=== PATIENT | male | born 1955 | race Caucasian/White ===

== ENCOUNTER 2016-09-27 22:59 | Inpatient (IN) | payer MEDICAID ==
[~2016-09-27] VITALS: Ht 180.3 cm; Wt 120.7 kg
[~2016-09-27 22:59] MED LIST: ASPI-231 PO; GLIM2TAB33 PO; HYDR25TA4 PO; INSUINJ IJ; LIS10T PO; NIAC250T17 PO; SIME125C14 PO; SIMV-8 PO
[2016-09-27 23:32] LABS: Basophils # (auto) 0 uL; Basophils % (auto) 0.5 % (0.0-2.0); Eosinophils # (auto) 0.3 uL; Eosinophils % (auto) 4.1 % (0.0-7.0); Hematocrit 35.6 % (41.0-53.0); Hemoglobin 12.3 g/dL (13.5-17.5); Lymphocytes # (auto) 1.9 uL; Mean Corpuscular Hemoglobin 29.8 pg (28.0-32.0); Mean Corpuscular Hgb Conc. 34.6 g/dL (32.0-36.0); Mean Corpuscular Volume 86.1 fL (80.0-100.0); Mean Platelet Volume 7.4 fL (7.4-10.4); Monocytes # (auto) 0.5 uL; Monocytes % (auto) 7.2 % (0.0-12.0); Neutrophils # (auto) 4.1 uL; Neutrophils % (auto) 60.2 % (37.0-80.0); Platelet Count (auto) 224 10^3/uL (140-450); Red Cell Distribution Width 13.9 % (11.6-16.0); White Blood Cell 6.7 10^3/uL (4.4-10.8)
[2016-09-27 23:48] LABS: Albumin 3.1 g/dL (3.4-5.0); BUN/Creatinine Ratio 23.3; Calcium 8.1 mg/dL (8.5-10.1); Magnesium 2.2 mg/dL (1.6-2.6)
[2016-09-28 00:01] LABS: Bilirubin, Total 0.2 mg/dL (0.2-1.0); Total Protein 6.7 g/dL (6.4-8.2)
[2016-09-28 00:03] LABS: B-Type Natriuretic Peptide 52.1 pg/mL (0-100); Temperature: 21.4 C (20.0-25.0)
[2016-09-28] MEDS ORDERED: NITROGLYCERIN 0.2MG/HR TOPICAL PATCH TD ONE (00:45)
[2016-09-28 01:13] LABS: INR 1.03 (0.9-1.15); Partial Thromboplastin Time 27.5 sec (22.64-33.71); Prothrombin Time 10.6 sec (9.37-12.3)
[2016-09-28 01:27] LABS: Urine Bilirubin Negative (Negative); Urine Color Yellow (Yellow); Urine Ketone Negative (Negative); Urine Nitrite Negative (Negative); Urine RBC 3 /hpf (0 - 3); Urine Squamous Epithelial Cell FEW /hpf (<5); Urine Urobilinogen Normal (Negative)
[2016-09-28 01:31] LABS: Urine Blood 1+ /uL (Negative); Urine Glucose 3+ mg/dL (Normal)
[2016-09-28] MEDS ORDERED: ONDANSETRON HCL 4 MG/2 ML VIAL IV PRN (05:45)
[2016-09-28] MEDS ORDERED: NITROGLYCERIN 0.4 MG SL TAB SL PRN (05:45)
[2016-09-28] MEDS ORDERED: DEXTROSE (50%) 50ML SYRG IV PRN (05:45)
[2016-09-28] MEDS ORDERED: HYDROcodone-ACET 5/325MG TAB PO PRN (05:45)
[2016-09-28] MEDS ORDERED: ACETAMINOPHEN 325 MG TAB PO PRN (05:45)
[2016-09-28] MEDS ORDERED: MORPHINE SULF INJ 2 MG/ML SYRINGE 1ML IV PRN (05:45)
[2016-09-28] MEDS: ACCU-CHEK COMFORT CURVE STRIP VI SCH ×3 (06:28→18:00)
[2016-09-28] MEDS: InsuLIN REG 1unit/0.01ml Soln (100units/ml) SC SCH ×3 (06:28→18:00)
[2016-09-28] MEDS ORDERED: GLIMEPIRIDE 2 MG TAB PO SCH (07:00)
[2016-09-28] MEDS ORDERED: ADENOSINE 103 MG in GIVE UN-DILUTED 0 ML IV STA (09:45)
[2016-09-28] MEDS ORDERED: HCTZ 25 MG TAB PO SCH (10:00)
[2016-09-28] MEDS ORDERED: LISINOPRIL 10 MG TAB PO SCH (10:00)
[2016-09-28] MEDS ORDERED: LORazepam 2MG/ML-1ML VIAL ONE (11:33)
[2016-09-28] MEDS ORDERED: LORazepam 2MG/ML-1ML VIAL IV ONE (11:45)
[2016-09-28 14:00] VITALS: BP 153/77
[2016-09-28] MEDS: FAMOTIDINE 20 MG TAB PO SCH ×2 (14:41→22:57)
[2016-09-28] MEDS: ENOXAPARIN SOD 40 MG/0.4 ML SYRINGE SC SCH (14:46)
[2016-09-28] MEDS: amLODIPine BESYLATE 5 MG TAB PO SCH ×2 (14:46→22:57)
[2016-09-28] MEDS: ASPirin 81 mg TAB PO SCH (14:46)
[2016-09-28 16:49] VITALS: BP 145/83
[2016-09-28] MEDS: GLIMEPIRIDE 2 MG TAB PO SCH (18:43)
[2016-09-28] MEDS ORDERED: CHOL20007 OR (19:24)
[2016-09-28] MEDS ORDERED: DOCU100T15 PO (19:24)
[2016-09-28] MEDS ORDERED: PERCOT PO (19:57)
[2016-09-28] MEDS ORDERED: CANA100T OR (19:57)
[2016-09-28 20:00] VITALS: BP 153/81
[2016-09-28 22:00] VITALS: BP 153/81
[2016-09-28] MEDS ORDERED: PATIENTS OWN MEDICATION (simvastatin 20 MG) PO SCH ×2 (22:00)
[2016-09-28] MEDS: ATORVASTATIN 20 MG TAB PO SCH (22:57)
[2016-09-29] VITALS (7 sets, daily range): BP systolic 132–159; BP diastolic 74–79
[2016-09-29] MEDS: InsuLIN REG 1unit/0.01ml Soln (100units/ml) SC SCH ×4 (06:00→18:00)
[2016-09-29] MEDS: ACCU-CHEK COMFORT CURVE STRIP VI SCH ×4 (06:00→18:00)
[2016-09-29 06:03] LABS: Basophils # (auto) 0 uL; Basophils % (auto) 0.5 % (0.0-2.0); Eosinophils # (auto) 0.3 uL; Hematocrit 37.5 % (41.0-53.0); Hemoglobin 12.8 g/dL (13.5-17.5); Lymphocytes # (auto) 1.6 uL; Lymphocytes % (auto) 22.7 % (10.0-50.0); Mean Corpuscular Hemoglobin 29.8 pg (28.0-32.0); Mean Corpuscular Hgb Conc. 34.2 g/dL (32.0-36.0); Mean Corpuscular Volume 87.2 fL (80.0-100.0); Mean Platelet Volume 7.5 fL (7.4-10.4); Monocytes # (auto) 0.5 uL; Monocytes % (auto) 7.2 % (0.0-12.0); Neutrophils # (auto) 4.6 uL; Neutrophils % (auto) 65.6 % (37.0-80.0); Platelet Count (auto) 231 10^3/uL (140-450); Red Cell Distribution Width 13.7 % (11.6-16.0)
[2016-09-29 06:40] LABS: BUN/Creatinine Ratio 29.7; Bilirubin, Total 0.4 mg/dL (0.2-1.0); Calcium 8.8 mg/dL (8.5-10.1); Potassium 4.5 mmol/L (3.5-5.1); Total Protein 6.7 g/dL (6.4-8.2)
[2016-09-29] MEDS: GLIMEPIRIDE 2 MG TAB PO SCH ×2 (08:19→18:00)
[2016-09-29] MEDS: ASPirin 81 mg TAB PO SCH (10:37)
[2016-09-29] MEDS: FAMOTIDINE 20 MG TAB PO SCH ×2 (10:38→22:20)
[2016-09-29] MEDS: amLODIPine BESYLATE 5 MG TAB PO SCH ×2 (10:38→22:20)
[2016-09-29] MEDS: ENOXAPARIN SOD 40 MG/0.4 ML SYRINGE SC SCH (10:39)
[2016-09-29] MEDS: ATORVASTATIN 20 MG TAB PO SCH (22:19)
[2016-09-30] VITALS (7 sets, daily range): BP systolic 131–153; BP diastolic 68–82
[2016-09-30] MEDS: ACCU-CHEK COMFORT CURVE STRIP VI SCH ×4 (00:09→17:20)
[2016-09-30 05:52] LABS: Basophils # (auto) 0 uL; Basophils % (auto) 0.3 % (0.0-2.0); Eosinophils # (auto) 0.2 uL; Eosinophils % (auto) 3.3 % (0.0-7.0); Hemoglobin 13.1 g/dL (13.5-17.5); Lymphocytes # (auto) 1.5 uL; Lymphocytes % (auto) 21.6 % (10.0-50.0); Mean Corpuscular Hemoglobin 29.9 pg (28.0-32.0); Mean Corpuscular Hgb Conc. 34.3 g/dL (32.0-36.0); Mean Platelet Volume 7.6 fL (7.4-10.4); Monocytes # (auto) 0.5 uL; Monocytes % (auto) 7.1 % (0.0-12.0); Neutrophils # (auto) 4.6 uL; Neutrophils % (auto) 67.7 % (37.0-80.0); Platelet Count (auto) 229 10^3/uL (140-450); Red Cell Distribution Width 13.6 % (11.6-16.0); White Blood Cell 6.8 10^3/uL (4.4-10.8)
[2016-09-30 06:12] LABS: Potassium 4.5 mmol/L (3.5-5.1)
[2016-09-30] MEDS: InsuLIN REG 1unit/0.01ml Soln (100units/ml) SC SCH ×4 (06:16→17:20)
[2016-09-30 06:21] LABS: Albumin 3.1 g/dL (3.4-5.0); BUN/Creatinine Ratio 23.8; Magnesium 2.2 mg/dL (1.6-2.6)
[2016-09-30 06:25] LABS: Bilirubin, Total 0.5 mg/dL (0.2-1.0); Total Protein 6.8 g/dL (6.4-8.2)
[2016-09-30] MEDS: ASPirin 81 mg TAB PO SCH (08:37)
[2016-09-30] MEDS: FAMOTIDINE 20 MG TAB PO SCH ×2 (08:37→22:12)
[2016-09-30] MEDS: amLODIPine BESYLATE 5 MG TAB PO SCH ×2 (08:37→22:11)
[2016-09-30] MEDS: ENOXAPARIN SOD 40 MG/0.4 ML SYRINGE SC SCH (08:38)
[2016-09-30] MEDS: GLIMEPIRIDE 2 MG TAB PO SCH ×2 (08:41→17:19)
[2016-09-30] MEDS: ATORVASTATIN 20 MG TAB PO SCH (22:10)
[2016-10-01] VITALS (7 sets, daily range): BP systolic 123–166; BP diastolic 62–84
[2016-10-01] MEDS: InsuLIN REG 1unit/0.01ml Soln (100units/ml) SC SCH ×4 (06:00→17:37)
[2016-10-01] MEDS: ACCU-CHEK COMFORT CURVE STRIP VI SCH ×4 (06:00→17:38)
[2016-10-01] MEDS: FAMOTIDINE 20 MG TAB PO SCH ×2 (08:58→22:06)
[2016-10-01] MEDS: ASPirin 81 mg TAB PO SCH (08:58)
[2016-10-01] MEDS: GLIMEPIRIDE 2 MG TAB PO SCH ×2 (08:58→17:53)
[2016-10-01] MEDS: ENOXAPARIN SOD 40 MG/0.4 ML SYRINGE SC SCH (08:59)
[2016-10-01] MEDS: amLODIPine BESYLATE 5 MG TAB PO SCH ×2 (08:59→22:06)
[2016-10-01] MEDS: BENAZEPRIL HCL 10 MG TAB PO SCH (12:04)
[2016-10-01] MEDS: ATORVASTATIN 20 MG TAB PO SCH (22:06)
[2016-10-02] MEDS: ACCU-CHEK COMFORT CURVE STRIP VI SCH ×4 (00:08→16:50)
[2016-10-02] MEDS: InsuLIN REG 1unit/0.01ml Soln (100units/ml) SC SCH ×4 (00:08→16:50)
[2016-10-02 04:57] VITALS: BP 118/63
[2016-10-02 06:24] LABS: Basophils # (auto) 0 uL; Basophils % (auto) 0.4 % (0.0-2.0); Eosinophils # (auto) 0.2 uL; Eosinophils % (auto) 3.2 % (0.0-7.0); Hematocrit 37.3 % (41.0-53.0); Hemoglobin 12.7 g/dL (13.5-17.5); Lymphocytes # (auto) 1.8 uL; Lymphocytes % (auto) 22.5 % (10.0-50.0); Mean Corpuscular Hemoglobin 29.8 pg (28.0-32.0); Mean Corpuscular Volume 87.7 fL (80.0-100.0); Monocytes # (auto) 0.7 uL; Monocytes % (auto) 8.5 % (0.0-12.0); Neutrophils # (auto) 5.1 uL; Neutrophils % (auto) 65.4 % (37.0-80.0); Platelet Count (auto) 223 10^3/uL (140-450); Red Cell Distribution Width 13.3 % (11.6-16.0); White Blood Cell 7.8 10^3/uL (4.4-10.8)
[2016-10-02 06:33] LABS: INR 1.07 (0.9-1.15); Partial Thromboplastin Time 28.1 sec (22.64-33.71)
[2016-10-02 06:40] LABS: Potassium 4.3 mmol/L (3.5-5.1)
[2016-10-02 06:47] LABS: Albumin 3.1 g/dL (3.4-5.0); BUN/Creatinine Ratio 25.8; Calcium 8.7 mg/dL (8.5-10.1); Magnesium 2.4 mg/dL (1.6-2.6)
[2016-10-02 06:50] LABS: Bilirubin, Total 0.3 mg/dL (0.2-1.0); Total Protein 6.6 g/dL (6.4-8.2)
[2016-10-02] MEDS ORDERED: IODIXANOL 320MG/ML 100ML BTL IV ONE (07:14)
[2016-10-02] MEDS ORDERED: LIDOCAINE 2%HCL (LOCAL ANESTH.) INJ 20ML MDV ONE (07:14)
[2016-10-02] MEDS: GLIMEPIRIDE 2 MG TAB PO SCH ×2 (08:00→17:58)
[2016-10-02] MEDS: ASPirin 81 mg TAB PO SCH (10:00)
[2016-10-02] MEDS: ENOXAPARIN SOD 40 MG/0.4 ML SYRINGE SC SCH (10:00)
[2016-10-02] MEDS: amLODIPine BESYLATE 5 MG TAB PO SCH ×2 (10:00→23:08)
[2016-10-02] MEDS: BENAZEPRIL HCL 10 MG TAB PO SCH (10:00)
[2016-10-02] MEDS: FAMOTIDINE 20 MG TAB PO SCH ×2 (10:00→23:09)
[2016-10-02] MEDS ORDERED: diphenhdrAMINE HCL 50 MG/1 ML VL IV ONE (11:00)
[2016-10-02] MEDS ORDERED: DIAZEPAM 5 MG TAB PO ONE (11:00)
[2016-10-02] MEDS ORDERED: fentaNYL CITRATE 100 MCG/2 ML VL ONE (11:51)
[2016-10-02] MEDS ORDERED: ANGIOMAX 250 MG VIAL IV ONE ×3 (11:51→12:52)
[2016-10-02] MEDS ORDERED: EPTIFIBATIDE INJ (2MG/ML) 10ML VIAL IV ONE (11:52)
[2016-10-02] MEDS ORDERED: SODIUM CHL 0.9% 0 ML ONE (11:52)
[2016-10-02] MEDS ORDERED: MIDAZOLAM HCL 1MG/1ML-2 ML VIAL ONE ×2 (11:52→12:50)
[2016-10-02] MEDS ORDERED: HYDROmorphone HCL 2 MG/ML VL ONE (11:54)
[2016-10-02] MEDS ORDERED: VERAPAMIL 2.5MG/ML INJ 2ML VIAL IV ONE (12:05)
[2016-10-02] MEDS ORDERED: SODIUM CHL 0.9% 50 ML ONE ×2 (12:39→12:53)
[2016-10-02] MEDS ORDERED: METOCLOPRAMIDE HCL 5MG/ml INJ 2ml VIAL ONE (13:17)
[2016-10-02] MEDS ORDERED: SODIUM BICARBONATE 50ML VIAL 150 ML in D5W 5% 1,000 ML IV SCH (13:30)
[2016-10-02] MEDS ORDERED: CLOPIDOGREL 300 MG TAB ONE (13:53)
[2016-10-02] MEDS: SODIUM BICARBONATE 50ML VIAL 150 ML in D5W 5% 1,000 ML IV SCH (16:30)
[2016-10-02 16:43] VITALS: BP 127/52
[2016-10-02 21:45] VITALS: BP 150/71
[2016-10-02] MEDS: ATORVASTATIN 20 MG TAB PO SCH (23:08)
[2016-10-03] MEDS: ACCU-CHEK COMFORT CURVE STRIP VI SCH ×3 (00:18→12:17)
[2016-10-03] MEDS: SODIUM BICARBONATE 50ML VIAL 150 ML in D5W 5% 1,000 ML IV SCH ×2 (04:17→15:30)
[2016-10-03 05:11] VITALS: BP 140/66
[2016-10-03] MEDS: InsuLIN REG 1unit/0.01ml Soln (100units/ml) SC SCH ×3 (05:31→12:17)
[2016-10-03] MEDS: GLIMEPIRIDE 2 MG TAB PO SCH (08:13)
[2016-10-03 09:00] VITALS: BP 148/60
[2016-10-03] MEDS: ENOXAPARIN SOD 40 MG/0.4 ML SYRINGE SC SCH (09:25)
[2016-10-03] MEDS: BENAZEPRIL HCL 10 MG TAB PO SCH (09:26)
[2016-10-03] MEDS: ASPirin 81 mg TAB PO SCH (09:26)
[2016-10-03] MEDS: FAMOTIDINE 20 MG TAB PO SCH (09:26)
[2016-10-03] MEDS: amLODIPine BESYLATE 5 MG TAB PO SCH (09:27)
[2016-10-03] MEDS ORDERED: CLOPIDOGREL BISULFATE 75 MG TAB PO SCH (10:00)
[2016-10-03 13:00] VITALS: BP 147/62
[2016-10-03] MEDS ORDERED: SODIUM BICARBONATE 50ML VIAL 150 ML in D5W 5% 1,000 ML IV SCH (13:30)
[2016-10-03] MEDS ORDERED: CLOP75TA28 PO (13:54)
[2016-10-03] MEDS ORDERED: METO25TA5 PO (13:54)
[2016-10-03 14:39] VITALS: BP 147/62
== END 2016-10-03 14:10 | disposition home or self-care (01) | DRG 175 ==
LOC: EDBD 22:59 → ER 22:59 → TELE 23:00 → TELE-EAST 09-28 09:25
PROVIDERS: ADMIT Nurse Practitioner; ATTEND Internal Medicine
PROC: 027034Z Dilation of Coronary Artery, One Artery with Drug-eluting Intraluminal Device, Percutaneous Approach (ICD-10-PCS; principal; 2016-10-02)
PROC: 4A023N7 Measurement of Cardiac Sampling and Pressure, Left Heart, Percutaneous Approach (ICD-10-PCS; 2016-10-02)
PROC: B2111ZZ Fluoroscopy of Multiple Coronary Arteries using Low Osmolar Contrast (ICD-10-PCS; 2016-10-02)
DX: I24.9 Acute ischemic heart disease, unspecified (principal); N17.0 Acute kidney failure with tubular necrosis; E44.0 Moderate protein-calorie malnutrition; I25.82 Chronic total occlusion of coronary artery; E11.65 Type 2 diabetes mellitus with hyperglycemia; E66.01 Morbid (severe) obesity due to excess calories; I25.119 Atherosclerotic heart disease of native coronary artery with unspecified angina pectoris; M54.9 Dorsalgia, unspecified; J44.9 Chronic obstructive pulmonary disease, unspecified; M54.10 Radiculopathy, site unspecified; M94.0 Chondrocostal junction syndrome [Tietze]; M19.90 Unspecified osteoarthritis, unspecified site; I10 Essential (primary) hypertension; G89.29 Other chronic pain; G81.94 Hemiplegia, unspecified affecting left nondominant side; D64.9 Anemia, unspecified; E78.5 Hyperlipidemia, unspecified; I25.2 Old myocardial infarction; Z80.8 Family history of malignant neoplasm of other organs or systems; Z82.3 Family history of stroke; Z82.49 Family history of ischemic heart disease and other diseases of the circulatory system; Z86.73 Personal history of transient ischemic attack (TIA), and cerebral infarction without residual deficits; Z83.3 Family history of diabetes mellitus; Z80.9 Family history of malignant neoplasm, unspecified; Z79.82 Long term (current) use of aspirin; Z79.899 Other long term (current) drug therapy; Z68.37 Body mass index [BMI] 37.0-37.9, adult
CPT/HCPCS: 36415; 71010; 78452; 80053; 80061; 81001; 82962; 83036; 83735; 83880; 84443; 84484; 85025; 85610; 85730; 86850; 86900; 86901; 87081; 93017; 93306; 94761; 99152; C1874; J0153; J1815; J2250; Q9967